=== PATIENT | female | born 1960 | race African-American/Black ===

== ENCOUNTER → 2017-05-27 | Outpatient (CLI) | payer OTHER ==
[~2017-05-27] MED LIST: ANTIOXIDANT SO1 EACH PO; PERCOCET PO; PROBIOTIC1 EAC1 PO
== END ==
LOC: BC 10:20
DX: Z12.31 Encounter for screening mammogram for malignant neoplasm of breast (principal)

== ENCOUNTER → 2018-03-31 | Outpatient (CLI) | payer OTHER | LOC: ULTRA 09:08 | DX: R19.01 Right upper quadrant abdominal swelling, mass and lump (principal); M79.9 Soft tissue disorder, unspecified ==

== ENCOUNTER → 2020-07-13 | Outpatient (CLI) | payer OTHER | LOC: RAD 08:09 | PROVIDERS: ATTEND Family Medicine | DX: Z12.31 Encounter for screening mammogram for malignant neoplasm of breast (principal) ==